=== PATIENT | female | born 1945 | race Caucasian/White ===

== ENCOUNTER → 2017-07-18 | Outpatient (CLI) | payer OTHER ==
[2017-07-18 10:49] LABS: ABSOLUTE EOSINOPHILS 0.1 thou/uL (0.0-0.7); ABSOLUTE LYMPHOCYTES 1.6 thou/uL (0.8-5.3); ABSOLUTE MONOCYTES 0.4 thou/uL (0.0-1.2); ABSOLUTE NEUTROPHILS 2.8 thou/uL (1.6-8.1); BASOPHILS 0.7 %; EOSINOPHILS 1.7 %; HEMATOCRIT 41.7 % (37.0-47.0); HEMOGLOBIN 13.9 gm/dL (12.0-15.0); LYMPHOCYTES 32.3 %; MCH 29.5 pg (26.0-34.0); MCHC 33.3 g/dL (28.0-37.0); MCV 88.7 fL (80.0-100.0); MONOCYTES 7.7 %; NUCLEATED RBCS 0 /100WBC; PLATELET COUNT* 187 thou/uL (150-400); POLYS 57.6 %; RDW-CV 13.7 % (10.5-14.5); WBC 4.9 thou/uL (4.0-11.0)
[2017-07-18 10:57] LABS: ALKALINE PHOSPHATASE 62 U/L (46-116); ANION GAP 9 mmol/L (7-16); BUN 13 mg/dL (7-18); CALCIUM 8.8 mg/dL (8.5-10.1); CHLORIDE 104 mmol/L (98-107); CHOLESTEROL 156 mg/dL (<200); CO2 30 mmol/L (21-32); GLUCOSE 90 mg/dL (70-99); HDL CHOLESTEROL 64 mg/dL (>40); LDL CHOLESTEROL 70 mg/dL (<100); POTASSIUM 3.3 mmol/L (3.5-5.1); SGOT 21 U/L (15-37); SGPT 26 U/L (30-65); SODIUM 143 mmol/L (136-145); TC:HDL 2.4 Ratio (Not establshd); TOTAL BILIRUBIN 0.8 mg/dL (<0.1-1.0); TOTAL PROTEIN 7.1 g/dL (6.4-8.2); TRIGLYCERIDE 113 mg/dL (<150); VLDL 23 mg/dL (<40)
[2017-07-18 10:59] LABS: SERUM ASSESSMENT Clear
[2017-07-18 11:54] LABS: ESR (SEDRATE) 10 mm/hr (0-30)
--- NOTE | 2017-07-18 12:59 | EKG ---
[place] [address] ELECTROCARDIOGRAM REPORT Name: LEISA BRENNAN Room: [facility] [employer] [facility]#: [id number] Admission: 07/18/17 Attend Phys: KE Lechuga Discharge: Date of : 41 Report #: [id number] THIS REPORT FOR: //name// [facility] Test Date: 2017-07-18 Test Time: 09:59:26 Pat Name: LEISA BRENNAN Department: Room: Gender: F [employer]: : 1945 Requested By: Natividad Del Toro Order Number: [id number] MD: Immanuel Chiang Measurements Intervals [place] Rate: 56 P: 3 [place]: 160 QRS: 114 QRSD: 141 T: 27 QT: 505 QTc: 488 Interpretive Statements Sinus bradycardia RBBB and LPFB No previous ECG available for comparison Electronically Signed On 07-18-2017 12:59:24 [employer] by Immanuel Chiang [email or web address] <ELECTRONICALLY SIGNED> By: Immanuel Chiang MD, [facility] 07/18/17 [id number] [phone] Immanuel Chiang MD, FACC /EPI
--- NOTE | 2017-07-18 16:18 | 2DMMODE ---
[place] [address] 2 D/M-MODE ECHOCARDIOGRAM Name: LEISA BRENNAN Room: [facility]#: [id number] Admission: 07/18/17 Attend Phys: KE Lechuga Discharge: Date of : 41 Date of Service: 07/18/17 1617 Report #: [id number] THIS REPORT FOR: //name// APPROVED REPORT Study performed: 07/18/2017 09:30:53 EXAM: Comprehensive 2D, Doppler, and color-flow Echocardiogram Patient Location: Out-Patient Status: routine BSA: 1.67 HR: 58 bpm BP: 140/70 mmHg Other Information Study Quality: Good Indications Murmur 2D Dimensions LVEF(%): 68.03 (>50%) IVSd: 15.10 (7-11mm) LVOT Diam: 20.30 (18-24mm) LVDd: 34.26 mm PWd: 9.74 (7-11mm) Ascending Ao: 26.56 (22-36mm) LVDs: 21.59 (25-40mm) Aortic Root: 25.16 mm Izquierdo's LVEF: 68.03 % Volumes Left Atrial Volume (Systole) LA ESV Index: 15.50 mL/m2 Aortic Valve AoV Peak Eugene.: 1.61 m/s AO Peak Gr.: 10.33 mmHg LVOT Max P.79 mmHg AO Mean Gr.: 5.35 mmHg LVOT Mean P.50 mmHg LVOT Max V: 1.56 m/s AO V2 VTI: 36.10 cm LVOT Mean V: 0.97 m/s HERIBERTO (VTI): 3.20 cm2 LVOT V1 VTI: 35.71 cm Mitral Valve E/A Ratio: 0.97 MV Decel. Time: 236.20 [place] [address] 2 D/M-MODE ECHOCARDIOGRAM Name: LEISA BRENNAN Room: [facility]#: [id number] Admission: 07/18/17 Attend Phys: KE Lechuga Discharge: Date of : 41 Date of Service: 07/18/17 1617 Report #: [id number] MV E Max Eugene.: 0.75 m/s MV PHT: 68.50 ms MVA (PHT): 3.21 cm2 TDI E/Lateral E': 10.71 E/Medial E': 12.50 Medial E' Eugene.: 0.06 m/s Lateral E' Eugene.: 0.07 m/s Pulmonary Valve PV Peak Eugene.: 0.95 m/s PV Peak Gr.: 3.61 mmHg Tricuspid Valve TR Peak Gr.: 21.34 mmHg RVSP: 26.34 mmHg Left Ventricle The left ventricle is normal size. There is normal LV segmental wall motion. There is normal left ventricular wall thickness. Left ventricular systolic function is normal. LVEF is 55-60%. Grade I - abnormal relaxation pattern. Right Ventricle The right ventricle is normal size. The right ventricular systolic function is normal. Atria The left atrium size is normal. The right atrium size is normal. Aortic Valve The aortic valve is normal in structure. No aortic regurgitation is present. There is no aortic valvular stenosis. Mitral Valve The mitral valve is normal in structure. Mild mitral regurgitation. No evidence of mitral valve stenosis. Tricuspid Valve The tricuspid valve is normal in structure. Mild tricuspid regurgitation. The RVSP is _26.3 mmHg. Pulmonic Valve The pulmonary valve is normal in structure. Trace pulmonic regurgitation[place] [address] 2 D/M-MODE ECHOCARDIOGRAM Name: LEISA BRENNAN Room: [facility]#: [id number] Admission: 07/18/17 Attend Phys: KE Lechuga Discharge: Date of : 41 Date of Service: 07/18/17 1617 Report #: [id number] The aortic root is normal in size. IVC is normal in size and collapses with >50% inspiration Pericardium There is no pericardial effusion. <Conclusion> The left ventricle is normal size. There is normal left ventricular wall thickness. Left ventricular systolic function is normal. LVEF is 55-60%. Grade I - abnormal relaxation pattern. Mild mitral regurgitation. Mild tricuspid regurgitation. The RVSP is _26.3 mmHg. <ELECTRONICALLY SIGNED> By: Kleber Schaefer MD, FACC 07/18/17 [phone] Kleber Schaefer MD, FACC /INF
[2017-07-18 21:07] LABS: GLYCOHEMOGLOBIN (HGB A1C) 5.3 % (4.8-5.6)
[2017-07-20 11:09] LABS: ANA INTERPRETATION Negative (Negative)
== END ==
LOC: M.CRD 07-07 09:58
PROVIDERS: Nurse Practitioner Family
DX: Z12.31 Encounter for screening mammogram for malignant neoplasm of breast (principal); I08.1 Rheumatic disorders of both mitral and tricuspid valves; I10 Essential (primary) hypertension; E78.2 Mixed hyperlipidemia; M15.2 Bouchard's nodes (with arthropathy); M25.50 Pain in unspecified joint; R79.89 Other specified abnormal findings of blood chemistry

== ENCOUNTER → 2018-07-09 | Outpatient (CLI) | payer OTHER ==
[2018-07-09 08:32] LABS: ABSOLUTE MONOCYTES 0.8 thou/uL (0.0-1.2); ABSOLUTE NEUTROPHILS 6.1 thou/uL (1.6-8.1); BASOPHILS 0.4 %; EOSINOPHILS 0.3 %; HEMATOCRIT 40.8 % (37.0-47.0); HEMOGLOBIN 13.9 gm/dL (12.0-15.0); LYMPHOCYTES 12.7 %; MCH 29.7 pg (26.0-34.0); MCV 87.4 fL (80.0-100.0); MONOCYTES 9.9 %; NUCLEATED RBCS 0 /100WBC; PLATELET COUNT* 189 thou/uL (150-400); POLYS 76.7 %; RBC 4.67 mil/uL (4.20-5.00); RDW-CV 13.4 % (10.5-14.5); WBC 7.9 thou/uL (4.0-11.0)
[2018-07-09 09:00] LABS: ALBUMIN 3.7 g/dL (3.4-5.0); ALKALINE PHOSPHATASE 67 U/L (46-116); ANION GAP 10 mmol/L (7-16); BUN 13 mg/dL (7-18); CALCIUM 8.8 mg/dL (8.5-10.1); CHLORIDE 106 mmol/L (98-107); CHOLESTEROL 149 mg/dL (<200); CO2 28 mmol/L (21-32); CREATININE 1.1 mg/dL (0.6-1.3); GLUCOSE 97 mg/dL (70-99); HDL CHOLESTEROL 57 mg/dL (>40); LDL CHOLESTEROL 73 mg/dL (<100); POTASSIUM 3.8 mmol/L (3.5-5.1); SGOT 16 U/L (15-37); SGPT 20 U/L (30-65); SODIUM 144 mmol/L (136-145); TC:HDL 2.6 Ratio (Not establshd); TOTAL PROTEIN 7.2 g/dL (6.4-8.2); TRIGLYCERIDE 99 mg/dL (<150); VLDL 20 mg/dL (<40)
[2018-07-09 09:01] LABS: SERUM ASSESSMENT Clear
[2018-07-09 23:07] LABS: GLYCOHEMOGLOBIN (HGB A1C) 5.5 % (4.8-5.6)
== END ==
LOC: M.LAB 08:15
PROVIDERS: Nurse Practitioner Family
DX: Z00.01 Encounter for general adult medical examination with abnormal findings (principal); I10 Essential (primary) hypertension; E78.2 Mixed hyperlipidemia; K57.30 Diverticulosis of large intestine without perforation or abscess without bleeding; E78.00 Pure hypercholesterolemia, unspecified; R79.89 Other specified abnormal findings of blood chemistry

== ENCOUNTER → 2018-07-24 | Outpatient (CLI) | payer OTHER | LOC: M.RAD 16:02 | DX: R10.32 Left lower quadrant pain (principal); M47.899 Other spondylosis, site unspecified ==

== ENCOUNTER → 2018-08-20 | Outpatient (CLI) | payer OTHER | LOC: M.LAB 08:31 | DX: R19.7 Diarrhea, unspecified (principal) ==

== ENCOUNTER → 2021-03-23 | Outpatient (CLI) | payer OTHER | LOC: M.RAD 09:34 | PROVIDERS: ATTEND Nurse Practitioner Family | DX: Z13.820 Encounter for screening for osteoporosis (principal); M85.88 Other specified disorders of bone density and structure, other site; M81.0 Age-related osteoporosis without current pathological fracture; M25.551 Pain in right hip ==